=== PATIENT | female | born 1980 | race Caucasian/White ===

== ENCOUNTER 2017-11-05 07:23 | Emergency (ER) | payer OTHER ==
[~2017-11-05] VITALS: Ht 162.6 cm; Wt 86.2 kg
[~2017-11-05 07:23] MED LIST: ACETAMINOPHEN-1 EAC1 PO; BACTRIM DS TAB1 EACH PO; CELEXA10 MG PO; GOLYTELY4000 M1 PO; HYDROXYCHLOROQ200 M1 PO; IBUPROFEN 800800 M1 PO; LEVOTHYROXINE0.05 MG PO; XANAX 0.25 MG0.25 MG PO
[2017-11-05 07:53] LABS: ABSOLUTE BASOPHILS 0.1 thou/uL (0.0-0.2); ABSOLUTE EOSINOPHILS 0.1 thou/uL (0.0-0.7); ABSOLUTE LYMPHOCYTES 0.8 thou/uL (0.8-5.3); ABSOLUTE MONOCYTES 0.5 thou/uL (0.0-1.2); ABSOLUTE NEUTROPHILS 6.6 thou/uL (1.6-8.1); BASOPHILS 0.8 %; HEMATOCRIT 45.1 % (37.0-47.0); HEMOGLOBIN 15.4 gm/dL (12.0-15.0); LYMPHOCYTES 10.6 %; MCH 30.8 pg (26.0-34.0); MCHC 34.1 g/dL (28.0-37.0); MCV 90.2 fL (80.0-100.0); MONOCYTES 5.7 %; MPV 8.3 fl. (7.2-11.1); NUCLEATED RBCS 0 /100WBC; PLATELET COUNT* 223 thou/uL (150-400); POLYS 81.9 %; RDW-CV 14.4 % (10.5-14.5)
[2017-11-05 08:11] LABS: ANION GAP 9 mmol/L (7-16); BUN 13 mg/dL (7-18); CALCIUM 8.7 mg/dL (8.5-10.1); CHLORIDE 108 mmol/L (98-107); CO2 26 mmol/L (21-32); CREATININE 0.9 mg/dL (0.6-1.3); GLUCOSE 110 mg/dL (70-99); POTASSIUM 4.2 mmol/L (3.5-5.1); SODIUM 143 mmol/L (136-145)
[2017-11-05 08:18] LABS: ALBUMIN 3.3 g/dL (3.4-5.0); ALKALINE PHOSPHATASE 88 U/L (46-116); LIPASE 141 U/L (73-393); MAGNESIUM 2.1 mg/dL (1.8-2.4); SGOT 14 U/L (15-37); SGPT 20 U/L (30-65); TOTAL BILIRUBIN 0.3 mg/dL (<0.1-1.0); TOTAL PROTEIN 6.8 g/dL (6.4-8.2); TROPONIN-I LEVEL <0.06 ng/mL (<0.06)
[2017-11-05] MEDS ORDERED: ATIVAN1 MG PO (10:08)
[2017-11-05 10:42] VITALS: BP 106/59
--- NOTE | 2017-11-05 16:33 | EKG ---
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 11/05/17 1633 0730 9 Cedrick Stephenson MD, FACC /EPI
--- NOTE | 2017-11-05 16:37 | EKG ---
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[facility] : 1980 Requested By: Dean Vallecillo Order Number: [id number] MD: Cedrick Stephenson Measurements Intervals [place] Rate: 58 P: 39 [place]: 153 QRS: 255 QRSD: 92 T: 35 QT: 407 QTc: 400 Interpretive Statements Sinus rhythm Inferior infarct, old No previous ECG available for comparison Electronically Signed On 11-05-2017 16:37:03 CDT by Cedrick Stephenson [email or web address] <ELECTRONICALLY SIGNED> By: Cedrick Stephenson MD, [facility] 11/05/17 1637 0949 0949 Cedrick Stephenson MD, FACC /EPI
== END 2017-11-05 10:52 | disposition home or self-care (01) ==
LOC: M.ERS 07:23
PROVIDERS: Emergency Medicine Emergency Medical Services
DX: R07.9 Chest pain, unspecified (principal); M32.9 Systemic lupus erythematosus, unspecified; F41.9 Anxiety disorder, unspecified; E03.9 Hypothyroidism, unspecified; F17.210 Nicotine dependence, cigarettes, uncomplicated